=== PATIENT | female | born 1985 | race American Indian/Alaskan Native ===

== ENCOUNTER 2016-11-03 13:04 | Emergency (ER) | payer SELFPAY ==
[2016-11-03 14:07] LABS: Basophils % (Auto) 0.2 % (0.0-1.8); Eosinophils % (Auto) 1.2 % (0.0-4.3); Hematocrit 31.7 % (30.3-42.9); Hemoglobin 10.6 gm/dl (10.1-14.3); Mean Corpuscular HGB Conc 33 % (30-34); Mean Corpuscular Hemoglobin 28 pg (28-32); Mean Corpuscular Volume 84 fl (79-97); Platelet Count 231 K/mm3 (140-440); Red Blood Count 3.79 M/mm3 (3.65-5.03); Red Cell Distribution Width 18.7 % (13.2-15.2); White Blood Count 8.5 K/mm3 (4.5-11.0)
[2016-11-03 14:15] LABS: Anion Gap 15 mmol/L; Blood Urea Nitrogen 4 mg/dL (7-17); Calcium 8.4 mg/dL (8.4-10.2); Carbon Dioxide 23 mmol/L (22-30); Chloride 103.5 mmol/L (98-107); Glucose 91 mg/dL (65-100); Potassium 3.6 mmol/L (3.6-5.0); Sodium 138 mmol/L (137-145)
[2016-11-03 14:25] LABS: Bacteria,Urine 3+ /HPF (Negative); Bilirubin,Urine NEG (Negative); Blood,Urine NEG (Negative); Ketones,Urine NEG (Negative); Leukocyte Esterase,Urine NEG (Negative); Mucus,Urine 3+ /HPF; Nitrite,Urine NEG (Negative); Urobilinogen,Urine < 2.0 mg/dL (<2.0)
[2016-11-03] MEDS ORDERED: NACL 0.9% 1000 ML 1,000 ML IV ONE (19:46)
[2016-11-03] MEDS ORDERED: KEFLEX PO ONE (19:46)
--- NOTE | 2016-11-03 21:46 | Emergency Department Report ---
Entered by THOMAS TINAJERO, acting as scribe for LELO NEWTON NP. ED Dizziness HPI - General Chief Complaint: Dizziness Stated Complaint: 5MONTHS PREG /DIZZY Time Seen by Provider: 11/03/16 19:35 Source: family Mode of arrival: Wheelchair Limitations: Language Barrier - History of Present Illness Initial Comments: 31 y/o female presents to the ED c/o dizziness this afternoon. Associated symptoms include urinary frequency, urgency and dysuria but she denies cramping , vaginal bleeding, fever, chills, or nausea and vomiting. Patient states she experienced dizziness after waking up and standing up. She is approximately 5 weeks, G1, P0, A0, . OBGYN care at [facility]. No alleviating or aggravating factors. NKDA. Patient speaks Falam. Stripper Apprentice used for this case. Complaint: dizziness -: This afternoon Timing: sudden onset Description: lightheadedness History of Same: No History of Trauma: No Severity: mild Improves With: nothing Worsens With: nothing Associated Symptoms: other (dysuria, urgency, frequency, discharge, denies: nausea, vomiting, vaginal bleeding, cramping). denies: fever/chills - Related Data Previous Rx's Medication Instructions Recorded Last Taken Type Cephalexin [Keflex] 500 mg PO Q12HR #14 cap 11/03/16 Unknown Rx Allergies Allergy/AdvReac Type Severity Reaction Status Date / Time No Known Allergies Allergy Unverified 11/03/16 13:19 ED Review of Systems Comment: All other systems reviewed and negative Constitutional: denies: chills, fever Eyes: denies: eye pain, eye discharge, vision change ENT: denies: ear pain, throat pain, dental pain, hearing loss, epistaxis, congestion Respiratory: denies: cough, shortness of breath, wheezing Cardiovascular: denies: chest pain, palpitations Endocrine: no symptoms reported Gastrointestinal: denies: abdominal pain, nausea, vomiting Genitourinary: urgency, dysuria, frequency, discharge. denies: other (vaginal bleeding) Musculoskeletal: denies: back pain, joint swelling, arthralgia Skin: denies: rash, lesions Neurological: other (dizziness x 1 episode today ). denies: headache, weakness , numbness, paresthesias, confusion, abnormal gait Psychiatric: anxiety. denies: depression Hematological/Lymphatic: denies: as per HPI, easy bleeding, easy bruising ED Past Medical Hx - Past Medical History Previous Medical History?: No - Surgical History Past Surgical History?: No - Social History Smoking Status: Never Smoker Substance Use Type: None - Medications Home Medications: Home Medications Medication Instructions Recorded Confirmed Last Taken Type Cephalexin [Keflex] 500 mg PO Q12HR #14 cap 11/03/16 Unknown Rx ED Physical Exam - General Limitations: Language Barrier General appearance: alert, in no apparent distress - Head Head exam: Present: atraumatic, normocephalic, normal inspection - Eye Eye exam: Present: normal appearance, PERRL, EOMI. Absent: scleral icterus, conjunctival injection, nystagmus, periorbital swelling, periorbital tenderness - ENT ENT exam: Present: normal exam, normal orophraynx, mucous membranes moist, TM's normal bilaterally, normal external ear exam - Neck Neck exam: Present: normal inspection, full ROM. Absent: tenderness, meningismus, lymphadenopathy, thyromegaly - Respiratory Respiratory exam: Present: normal lung sounds bilaterally. Absent: respiratory distress, wheezes, rales, rhonchi, stridor, chest wall tenderness, accessory muscle use, decreased breath sounds, prolonged expiratory - Cardiovascular Cardiovascular Exam: Present: regular rate, normal rhythm, normal heart sounds. Absent: bradycardia, tachycardia, irregular rhythm, systolic murmur, diastolic murmur, rubs, gallop - GI/Abdominal GI/Abdominal exam: Present: soft, normal bowel sounds. Absent: distended, tenderness, guarding, rebound, rigid, diminished bowel sounds, bruit - Rectal Rectal exam: Present: deferred - Extremities Exam Extremities exam: Present: normal inspection, full ROM, normal capillary refill. Absent: tenderness, pedal edema, joint swelling, calf tenderness - Back Exam Back exam: Present: normal inspection, full ROM. Absent: tenderness, CVA tenderness (R), CVA tenderness (L), muscle spasm, paraspinal tenderness, vertebral tenderness, rash noted - Neurological Exam Neurological exam: Present: alert, oriented X3, CN II-XII intact, normal gait, reflexes normal. Absent: motor sensory deficit - Expanded Neurological Exam Expanded Patient oriented to: Present: person, place, time Speech: Present: fluid speech Cranial nerves: EOM's Intact: Normal, Gag Reflex: Normal, Tongue Deviation: Normal, Nystagmus: Normal, Facial Sensation: Normal, Facial Palsy with Forehead Movement: Normal, Facial Palsy without Forehead Movement: Normal Cerebellar function: Finger to Nose: Normal, Heel to [place]: Normal, Romberg: Normal Upper motor neuron: Trevor Neglect: Normal, Pronator Drift: Normal, Babinski Sign : Normal, Sensory Extinction: Normal Sensory exam: Upper Extremity Light Touch: Normal, Upper Extremity Pin Prick: Normal, Upper Extremity Temperature: Normal, UE 2 Point Discrimination: Normal, Lower Extremity Light Touch: Normal, Lower Extremity Pin Prick: Normal, Lower Extremity Temperature: Normal, LE 2 Point Discrimination: Normal Motor strength exam: RUE: 5, LUE: 5, RLE: 5, LLE: 5 DTR: bicep (R): 2+, bicep (L): 2+, tricep (R): 2+, tricep (L): 2+, knee (R): 2+ , knee (L): 2+, ankle (R): 2+, ankle (L): 2+ Best Eye Response ([place]): (4) open spontaneously Best Motor Response ([place]): (6) obeys commands Best Verbal Response ([place]): (5) oriented [place] Total: 15 - Psychiatric Psychiatric exam: Present: normal affect, normal mood - Skin Skin exam: Present: warm, dry, intact, normal color. Absent: rash ED Course Vital Signs 11/03/16 11/03/16 13:22 20:37 Temperature 98.6 F Pulse Rate 87 Respiratory 17 18 Rate Blood Pressure 126/73 O2 Sat by Pulse 100 100 Oximetry ED Medical Decision Making - Lab Data Result diagrams: 11/03/16 13:41 11/03/16 13:41 Laboratory Tests 11/03/16 11/03/16 11/03/16 13:41 13:41 13:41 WBC 8.5 RBC 3.79 Hgb 10.6 Hct 31.7 MCV 84 MCH 28 MCHC 33 RDW 18.7 H Plt Count 231 Lymph % (Auto) 20.1 [place] % (Auto) 4.7 Eos % (Auto) 1.2 Baso % (Auto) 0.2 Lymph # 1.7 [place] # 0.4 Eos # 0.1 Baso # 0.0 Seg Neutrophils % 73.8 H Seg Neutrophils # 6.3 Sodium 138 Potassium 3.6 Chloride 103.5 Carbon Dioxide 23 Anion Gap 15 BUN 4 L Creatinine 0.4 L Estimated GFR > 60 BUN/Creatinine Ratio 10.00 Glucose 91 Calcium 8.4 HCG, Quant 30015 H Urine Color Urine Turbidity Urine pH Ur Specific [place] Urine Protein Urine Glucose (UA) Urine Ketones Urine Blood Urine Nitrite Urine Bilirubin Urine Urobilinogen Ur Leukocyte Esterase Urine WBC (Auto) Urine RBC (Auto) U Epithel Cells (Auto) Urine Bacteria (Auto) Hyaline Casts Urine Mucus 11/03/16 13:57 WBC RBC Hgb Hct MCV MCH MCHC RDW Plt Count Lymph % (Auto) [place] % (Auto) Eos % (Auto) Baso % (Auto) Lymph # [place] # Eos # Baso # Seg Neutrophils % Seg Neutrophils # Sodium Potassium Chloride Carbon Dioxide Anion Gap BUN Creatinine Estimated GFR BUN/Creatinine Ratio Glucose Calcium HCG, Quant Urine Color Yellow Urine Turbidity Clear Urine pH 5.0 Ur Specific [place] 1.023 Urine Protein 30 mg/dl Urine Glucose (UA) Neg Urine Ketones Neg Urine Blood Neg Urine Nitrite Neg Urine Bilirubin Neg Urine Urobilinogen < 2.0 Ur Leukocyte Esterase Neg Urine WBC (Auto) 2.0 Urine RBC (Auto) 2.0 U Epithel Cells (Auto) 10.0 Urine Bacteria (Auto) 3+ Hyaline Casts 1 Urine Mucus 3+ - Medical Decision Making pt is a 31 y/o female presents to the ED c/o dizziness this afternoon. Associated symptoms include urinary frequency, urgency and dysuria but she denies cramping, vaginal bleeding, fever, chills, or nausea and vomiting. Patient states she experienced dizziness after waking up and standing up. She is approximately 5 weeks, G1, P0, A0, . OBGYN care at [facility]. No alleviating or aggravating factors. NKDA. Patient speaks Falam. Stripper Apprentice used for this case, exam: pt appears well nontoxic , ent: normal no cough no post nasal no sinus congestion no sinus pain pharnxy: no erythema no exudate no lesions no stridor lungs clear bilat all lobes no wheezing ,cv: S1 and S2 no MRG , no edema no pnd no butler pt is ambulatory gait is steady , CNII-XII grossly intact negative romberg , there is no headache no dizziness no lightheadedness no n/v at this timek noted orthostatic v/s and ua: for bacteria: plan NS 1liter iv, keflex po for uti will dc with keflex x 7 days, follow up with auto glass worker on monday as pt is followed by [facility] pt and verbalized agreement and understanding with discharge plan. ED Disposition Clinical Impression: Dizziness UTI (urinary tract infection) during Qualifiers: Trimester: first trimester Qualified Code(s): O23.41 - Unspecified infection of urinary tract in , first trimester Disposition: DC- TO HOME OR SELFCARE Is pt being admited?: No Does the pt Need Aspirin: No Condition: Good Instructions: Urinary Tract Infection in Women (ED), Dizziness (ED) Additional Instructions: follow up with your OB / CLINICAL LABORATORY SCIENTIST next next week as scheduled return to emergency if symptoms worsen Prescriptions: Cephalexin [Keflex] 500 mg PO Q12HR #14 cap Referrals: PRIMARY CARE, [Primary Care Provider] - 3-5 Days Time of Disposition: 21:46 This documentation as recorded by the TANVI menchaca ELIZABETH,accurately reflects the service I personally performed and the decisions made by me, LELO NEWTON, STAGE DRIVER.
[2016-11-03 22:00] VITALS: BP 132/76
== END 2016-11-03 22:00 | disposition home or self-care (01) ==
LOC: ED 13:04
DX: O23.41 Unspecified infection of urinary tract in pregnancy, first trimester (principal); Z3A.01 Less than 8 weeks gestation of pregnancy
CPT/HCPCS: 36415; 80048; 81001; 84702; 85025; 93005; 93010; 96360; 99284; J7030